=== PATIENT | female | born 1975 | race African-American/Black ===

== ENCOUNTER 2022-05-26 10:25 | Inpatient (IN) ==
[2022-05-26] MEDS ORDERED: BISACODYL 5 MG TABLET PO PRN (13:39)
[2022-05-26] MEDS ORDERED: ACETAMINOPHEN 325 MG TABLET PO PRN (13:39)
[2022-05-26] MEDS ORDERED: PROMETHAZINE 25 MG TABLET PO PRN (13:39)
[2022-05-26] MEDS ORDERED: ONDANSETRON 4 MG/2 ML VIAL IV PRN (13:39)
[2022-05-26 16:22] LABS: Basophils % 0.2 % (0.0-0.8); Eosinophils # 0.1 10*3/uL (0.0-0.87); Eosinophils % 2.3 % (0.00-10.9); Hematocrit 19.8 VOL% (35.7-47.0); Lymphocytes % 38.3 % (21.3-54.2); Mean Corpuscular HGB Conc 29.8 GM/DL (32-36); Mean Platelet Volume 9.7 FL (9.6-12.0); Monocytes # 0.5 10*3/uL (0.11-0.8); Monocytes % 8.7 % (1.7-12.7); Neutrophils % 50.3 % (38.7-73.9); Platelet Count 166 T/CUMM (130-400); Red Blood Count 1.96 MC/CUMM (3.8-5.5); Red Cell Distribution Width 14.5 % (9.3-17.3); White Blood Count 5.3 T/CUMM (4-12)
[2022-05-26 16:28] LABS: Hemoglobin 5.9 GM/DL (12.0-16.0)
[2022-05-26] MEDS ORDERED: SODIUM CHLORIDE 0.9% 1,000 ML IV PRN (16:52)
[2022-05-26 17:14] LABS: % Iron Saturation 11.1 % (18-50); Ferritin 8.7 ng/mL (8-252)
[2022-05-26 17:17] LABS: Calcium 8.1 MG/DL (8.5-10.1); Osmolality,Calculated 296.4 MOS/KG (273-304); Phosphorous 6.1 MG/DL (2.5-4.9); Potassium 4.4 MMOL/L (3.5-5.1)
[2022-05-26 20:03] LABS: Hepatitis B Core IgM Quant 0.07 Index; Hepatitis B Surface Ag Quant < 0.10 Index; Hepatitis B Surface Ag Result Non-Reactive (NonReactive); Hepatitis C Virus Ab Quant 0.03 Index; Hepatitis C Virus Ab Result Non-Reactive (NonReactive)
[2022-05-26] MEDS: GABAPENTIN 300 MG CAPSULE PO SCH (21:15)
[2022-05-27] MEDS: PANTOPRAZOLE 40 MG TABLET PO SCH (08:19)
[2022-05-27] MEDS: GABAPENTIN 300 MG CAPSULE PO SCH ×2 (08:19→20:51)
[2022-05-27] MEDS ORDERED: EPOETIN ALFA-EPBX 4,000 UNIT/ML VIAL IV PRN (10:41)
[2022-05-27] MEDS ORDERED: DEXTROSE 10% 250 ML BAG IV PRN (10:51)
[2022-05-27] MEDS ORDERED: GLUCAGON 1 MG VIAL IM PRN (10:51)
[2022-05-27] MEDS ORDERED: FERRIC GLUCONATE COMPLEX 125 MG in SODIUM CHLORIDE 0.9% 100 ML IV SCH (11:00)
[2022-05-27] MEDS ORDERED: IRON SUCROSE 100 MG/5 ML VIAL IV SCH (11:00)
[2022-05-27] MEDS: METOCLOPRAMIDE 10 MG/10 ML UDCUP PO SCH ×2 (11:08→15:58)
[2022-05-27] MEDS: INSULIN LISPRO 100 UNIT/ML SUBCUT SCH ×3 (11:08→20:51)
[2022-05-27] MEDS: LOSARTAN/HCTZ 50-12.5 MG TABLET PO SCH (13:32)
[2022-05-27] MEDS: amLODIPine 10 MG TABLET PO SCH (13:32)
[2022-05-27] MEDS ORDERED: INSULIN GLARGINE 100 UNIT/ML SUBCUT SCH (21:00)
[2022-05-28 06:10] LABS: Basophils % 0.3 % (0.0-0.8); Eosinophils # 0.1 10*3/uL (0.0-0.87); Eosinophils % 1.5 % (0.00-10.9); Hematocrit 25.1 VOL% (35.7-47.0); Hemoglobin 7.8 GM/DL (12.0-16.0); Immature Granulocytes % 0.2 %; Immature Granulocytes Absolute 0.01 #; Lymphocytes # 2.6 10*3/uL (1.4-4.0); Lymphocytes % 39.7 % (21.3-54.2); Mean Corpuscular HGB Conc 31.1 GM/DL (32-36); Mean Corpuscular Volume 95.8 FL (87-102); Mean Platelet Volume 9.5 FL (9.6-12.0); Monocytes # 0.6 10*3/uL (0.11-0.8); Monocytes % 8.9 % (1.7-12.7); Neutrophils % 49.4 % (38.7-73.9); Platelet Count 172 T/CUMM (130-400); Red Blood Count 2.62 MC/CUMM (3.8-5.5); Red Cell Distribution Width 14.8 % (9.3-17.3); White Blood Count 6.6 T/CUMM (4-12)
[2022-05-28 06:29] LABS: Osmolality,Calculated 286.4 MOS/KG (273-304); Potassium 4.2 MMOL/L (3.5-5.1)
[2022-05-28] MEDS ORDERED: SODIUM CHLORIDE 0.9% 500 ML IV SCH (06:30)
[2022-05-28] MEDS: SODIUM CHLORIDE 0.9% 1,000 ML IV SCH (08:31)
[2022-05-28] MEDS ORDERED: propofoL 200 MG/20 ML VIAL IV ONE (09:07)
[2022-05-28] MEDS ORDERED: LIDOCAINE 2% 5 ML VIAL ONE (09:07)
[2022-05-28] MEDS: INSULIN LISPRO 100 UNIT/ML SUBCUT SCH ×4 (10:01→21:31)
[2022-05-28] MEDS: PANTOPRAZOLE 40 MG TABLET PO SCH (10:12)
[2022-05-28] MEDS: GABAPENTIN 300 MG CAPSULE PO SCH ×2 (10:12→21:31)
[2022-05-28] MEDS: METOCLOPRAMIDE 10 MG/10 ML UDCUP PO SCH ×3 (10:25→17:48)
[2022-05-28] MEDS: SEVELAMER CARBONATE 800 MG TABLET PO SCH ×2 (11:50→17:48)
[2022-05-28] MEDS ORDERED: BISACODYL 5 MG TABLET PO ONE (12:00)
[2022-05-28] MEDS: METOPROLOL SUCCINATE XL 25 MG TABLET PO SCH (17:48)
[2022-05-28] MEDS: LOSARTAN/HCTZ 50-12.5 MG TABLET PO SCH (17:49)
[2022-05-28] MEDS: amLODIPine 10 MG TABLET PO SCH (17:49)
[2022-05-28] MEDS ORDERED: POLYETHYLENE GLYCOL POWDER 255 GM BOTTLE PO ONE (18:00)
[2022-05-29 05:55] LABS: Basophils % 0.4 % (0.0-0.8); Eosinophils # 0.1 10*3/uL (0.0-0.87); Eosinophils % 1.4 % (0.00-10.9); Hematocrit 26.5 VOL% (35.7-47.0); Hemoglobin 8.1 GM/DL (12.0-16.0); Immature Granulocytes % 0.1 %; Immature Granulocytes Absolute 0.01 #; Lymphocytes # 2.2 10*3/uL (1.4-4.0); Lymphocytes % 30.2 % (21.3-54.2); Mean Corpuscular HGB Conc 30.6 GM/DL (32-36); Mean Platelet Volume 10.2 FL (9.6-12.0); Monocytes # 0.7 10*3/uL (0.11-0.8); Monocytes % 9.9 % (1.7-12.7); Platelet Count 163 T/CUMM (130-400); Red Blood Count 2.76 MC/CUMM (3.8-5.5); Red Cell Distribution Width 14.7 % (9.3-17.3); White Blood Count 7.2 T/CUMM (4-12)
[2022-05-29 06:15] LABS: Osmolality,Calculated 285.4 MOS/KG (273-304); Potassium 4.1 MMOL/L (3.5-5.1)
[2022-05-29] MEDS: INSULIN LISPRO 100 UNIT/ML SUBCUT SCH (07:48)
[2022-05-29 07:56] VITALS: BP 149/85
[2022-05-29] MEDS: PANTOPRAZOLE 40 MG TABLET PO SCH (08:01)
[2022-05-29] MEDS: GABAPENTIN 300 MG CAPSULE PO SCH (08:01)
[2022-05-29] MEDS: METOPROLOL SUCCINATE XL 25 MG TABLET PO SCH (08:01)
[2022-05-29] MEDS: SEVELAMER CARBONATE 800 MG TABLET PO SCH (08:02)
[2022-05-29] MEDS: LOSARTAN/HCTZ 50-12.5 MG TABLET PO SCH (08:02)
[2022-05-29] MEDS: amLODIPine 10 MG TABLET PO SCH (08:02)
[2022-05-29] MEDS: METOCLOPRAMIDE 10 MG/10 ML UDCUP PO SCH (08:02)
[2022-05-29] MEDS: SODIUM CHLORIDE 0.9% 1,000 ML IV SCH (09:46)
== END 2022-05-29 11:03 | disposition home or self-care (01) | DRG 682 ==
LOC: N.2E 14:45
PROVIDERS: ADMIT Internal Medicine Nephrology; ATTEND Internal Medicine Nephrology